=== PATIENT | female | born 1970 | race Caucasian/White ===

== ENCOUNTER 2021-06-25 12:14 | Outpatient (CLI) | payer BC, SELFPAY ==
--- NOTE | 2021-06-25 12:29 | XR_ITS ---
WS: [id number] RIGHT FOOT: 3 VIEW(S) TECHNIQUE: AP, oblique and lateral. 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 No acute fracture or dislocation. Normal tarsal/metatarsal alignment. Very mild narrowing of the first metatarsophalangeal joint. There are several small erosions along th e nonarticular surface of the first metatarsal head, medial. Partially sclerotic margins involving th e erosions. Soft tissue mass. Small calcaneal spur. XR/XR foot RT min 3V* [id number] IMPRESSION: 1. Erosions involving the nonarticular surface medial first metatarsal head. N o definite overhanging margins. Consider rheumatoid versus gout. 2. No subluxations.
--- NOTE | 2021-06-25 12:29 | XR_ITS ---
WS: [id number] LEFT FOOT: 3 VIEW(S) TECHNIQUE: AP, oblique and lateral. HISTORY: Z79.899 - Other senior care (current) drug therapy COMPARISON: None available. No acute fracture or dislocation. Normal tarsal/metatarsal alignment. Hallux valgus deformity is mild. Small erosions or subchondral cystic changes involving the medial fi rst metatarsal head. Nonarticular bone changes. Small calcaneal spur. XR/XR foot LT min 3V* [id number] IMPRESSION: Nonarticular subchondral cysts or erosions involving the medial first metatarsa l head. Differential includes subchondral cystic disease, gout or rheumatoid.
--- NOTE | 2021-06-25 12:29 | XR_ITS ---
WS: [id number] RIGHT HAND: 3 VIEW(S) TECHNIQUE: PA, oblique and lateral. HISTORY: Z79.899 - Other assisted (current) drug therapy COMPARISON: None available. No acute fracture or dislocation. No erosions. Very mild narrowing of the interphalangeal joint spaces. Mild first CMC joint arthritis. XR/XR hand RT min 3V* [id number] IMPRESSION: Mild changes of osteoarthritis. Most significant at the first CMC joint.
--- NOTE | 2021-06-25 12:29 | XR_ITS ---
WS: [id number] LEFT HAND: 3 VIEW(S) TECHNIQUE: PA, oblique and lateral. HISTORY: Z79.899 - Other [facility]ci (current) drug therapy COMPARISON: None available. No acute fracture or dislocation. No erosions. Very minimal narrowing of the first CMC joint. No subluxation. XR/XR hand LT min 3V* [id number] IMPRESSION: Minimal osteoarthritis at the first CMC joint.
[2021-06-25 13:15] LABS: Basophils # 0.1 10^3/uL (0.0-0.1); Basophils % 1.1 %; Eosinophils # 0.2 10^3/uL (0.0-0.8); Hematocrit 39.3 % (37.0-47.0); Hemoglobin 12.6 g/dL (11.5-15.3); Lymphocytes # 1.6 10^3/uL (0.8-4.8); Lymphocytes % 27.3 %; Mean Corpuscular HGB Conc 32.1 g/dL (30.0-36.0); Mean Corpuscular Hemoglobin 28.4 pg (28.0-34.0); Mean Corpuscular Volume 88.5 fl (81-99); Mean Platelet Volume 10.4 fL (7.4-10.4); Monocytes # 0.4 10^3/uL (0.2-0.9); Monocytes % 6.2 %; Neutrophils # 3.48 10^3/uL (1.8-7.7); Neutrophils % 61.2 %; Nucleated Red Blood Cells % 0 %; Platelet Count 230 10^3/cmm (130-400); Red Blood Count 4.44 10^6/uL (4.1-5.3); Red Cell Distribution Width 12.8 % (12.1-15.1); White Blood Count 5.7 10^3/uL (4.0-10.0)
[2021-06-25 13:22] LABS: Erythrocyte Sedimentation Rate 7 mm/hr (0-15)
[2021-06-25 13:55] LABS: Alanine Aminotransferase 14 U/L (0-33); Albumin Level 4.4 g/dL (3.5-5.2); Alkaline Phosphatase 82 IU/L (35-105); Aspartate Amino Transferase 20 U/L (0-32); C Reactive Protein 3.5 mg/L (0.0-4.9); Globulin 2.8 g/dL (1.3-4.6); Total Bilirubin 0.2 mg/dL (0.15-1.2); Total Protein 7.2 g/dL (6.6-8.7)
[2021-06-25 13:58] LABS: Hepatitis B Core AB, Total Non-Reactive (Nonreactive); Hepatitis B Surface Antigen Non-Reactive (Nonreactive); Hepatitis C Virus Antibody Non-Reactive (Nonreactive)
[2021-06-25 14:11] LABS: 25 Hydroxy Vitamin D 38 ng/mL (30-100)
[2021-06-26 11:38] LABS: COMPLEMENT COMPONENT C3C 136 mg/dL (83-193); COMPLEMENT COMPONENT C4C 17 mg/dL (15-57)
[2021-06-26 12:43] LABS: CENTROMERE B ANTIBODY <1.0 NEG AI (<1.0 NEG); JO-1 ANTIBODY <1.0 NEG AI (<1.0 NEG); RNP ANTIBODY <1.0 NEG AI (<1.0 NEG); SCL-70 ANTIBODY <1.0 NEG AI (<1.0 NEG); SJOGREN'S ANTIBODY (SS-A) <1.0 NEG AI (<1.0 NEG); SM ANTIBODY <1.0 NEG AI (<1.0 NEG); SS-B <1.0 NEG AI (<1.0 NEG)
[2021-06-26 13:52] LABS: Cyclic Citrullinated Peptide <16 UNITS
[2021-06-26 14:33] LABS: THYROID PEROXIDASE ANTIBODIES <1 IU/mL (<9)
[2021-06-26 15:06] LABS: COMPLEMENT, TOTAL (CH50) >60 U/mL (31-60)
[2021-06-27 14:52] LABS: Quantiferon Mitogen 7.48 IU/mL; Quantiferon Nil 0.01 IU/mL; Quantiferon Plus TB1 0.01 IU/mL; Quantiferon Plus TB2 0.01 IU/mL; Quantiferon TB Gold NEGATIVE (NEGATIVE)
[2021-06-29 14:27] LABS: ANA PATTERN Nuclear, Homogeneous; ANA SCREEN, IFA POSITIVE (NEGATIVE)
[2021-07-01 11:07] LABS: DNA AB (DS) CRITHIDIA,IFA NEGATIVE (NEGATIVE)
== END 2021-06-25 12:15 | disposition home or self-care (01) ==
LOC: RAD 12:25
PROVIDERS: PCP Internal Medicine Rheumatology; Visit Provider Internal Medicine Rheumatology
DX: M19.90 Unspecified osteoarthritis, unspecified site (principal); R76.8 Other specified abnormal immunological findings in serum; Z79.899 Other long term (current) drug therapy; Z11.59 Encounter for screening for other viral diseases; Z11.1 Encounter for screening for respiratory tuberculosis
CPT/HCPCS: 73130; 73630; 80076; 82306; 82565; 85025; 85651; 86140; 86160; 86162; 86200; 86235; 86255; 86376; 86480; 86704; 86803; 87340

== ENCOUNTER 2022-03-12 18:44 | Outpatient (CLI) | payer BC, SELFPAY ==
[2022-03-12 19:23] LABS: Basophils # 0.1 10^3/uL (0.0-0.1); Basophils % 1.1 %; Eosinophils # 0.4 10^3/uL (0.0-0.8); Eosinophils % 7.9 %; Hematocrit 41.1 % (37.0-47.0); Hemoglobin 13.1 g/dL (11.5-15.3); Lymphocytes # 1.6 10^3/uL (0.8-4.8); Lymphocytes % 30.3 %; Mean Corpuscular HGB Conc 31.9 g/dL (30.0-36.0); Mean Corpuscular Hemoglobin 28.2 pg (28.0-34.0); Mean Corpuscular Volume 88.6 fl (81-99); Monocytes # 0.4 10^3/uL (0.2-0.9); Monocytes % 8.1 %; Neutrophils # 2.79 10^3/uL (1.8-7.7); Neutrophils % 52.6 %; Nucleated Red Blood Cells % 0 %; Platelet Count 189 10^3/cmm (130-400); Red Blood Count 4.64 10^6/uL (4.1-5.3); Red Cell Distribution Width 12.2 % (12.1-15.1); White Blood Count 5.3 10^3/uL (4.0-10.0)
[2022-03-12 19:47] LABS: Alanine Aminotransferase 21 U/L (0-33); Albumin Level 4.5 g/dL (3.5-5.2); Alkaline Phosphatase 71 U/L (35-105); Aspartate Amino Transferase 25 U/L (0-32); Globulin 3.1 g/dL (1.3-4.6); Glomerular Filtration Rate 58.2 mL/min (90-130); Thyroid Stimulating Hormone 3.26 uIU/mL (0.27-4.20); Total Bilirubin 0.2 mg/dL (0.15-1.2); Total Protein 7.6 g/dL (6.6-8.7)
[2022-03-12 20:57] LABS: Free T4 Free Thyroxine 0.82 ng/dL (0.82-1.77)
== END 2022-03-12 18:45 | disposition home or self-care (01) ==
PROVIDERS: PCP Internal Medicine Rheumatology; Visit Provider Internal Medicine Rheumatology
DX: M19.90 Unspecified osteoarthritis, unspecified site (principal); M35.9 Systemic involvement of connective tissue, unspecified; Z79.899 Other long term (current) drug therapy
CPT/HCPCS: 36415; 80076; 82565; 84439; 84443; 85025; 86140

== ENCOUNTER → 2023-01-25 16:31 | Outpatient (BNVA) | payer BC, SELFPAY | PROVIDERS: Visit Provider Internal Medicine Rheumatology | DX: M19.90 Unspecified osteoarthritis, unspecified site (principal); Z79.899 Other long term (current) drug therapy | CPT/HCPCS: 80076; 82565; 85025; 86140 ==